=== PATIENT | female | born 1955 | race Caucasian/White ===

== ENCOUNTER 2024-10-14 03:19 | Inpatient (IN) | payer MEDICAID, MEDICARE ==
[~2024-10-14] VITALS: Ht 167.6 cm; Wt 70.3 kg
[2024-10-14] MEDS ORDERED: Z GUARD REMEDY 4 OZ OINT TP PRN (05:00)
[2024-10-14] MEDS ORDERED: ONDANSETRON HCL/PF 4 MG/2 ML VIAL IVP PRN (05:00)
[2024-10-14] MEDS ORDERED: ACETAMINOPHEN 325 MG TABLET PO PRN (05:00)
[2024-10-14] MEDS ORDERED: MAGNESIUM HYDROXIDE 30 ML UDC PO PRN (05:00)
[2024-10-14 05:46] VITALS: BP 145/86; TEMP 98.1; O2SAT 97
[2024-10-14] MEDS: CEFEPIME 2 GM in IV D5W 100 ML IV SCH (06:48)
[2024-10-14] MEDS ORDERED: LOSA25TA27 PO (07:08)
[2024-10-14 07:32] LABS: BASOPHILS % (AUTO) 0.3 % (0.0-2.0); EOSINOPHILS # (AUTO) 0.1 K/uL (0.0-0.7); EOSINOPHILS % (AUTO) 1.3 % (0.0-6.0); HEMATOCRIT 29 % (33-45); HEMOGLOBIN 10.2 g/dL (11.5-14.8); LYMPHOCYTES # (AUTO) 2.1 K/uL (0.8-4.8); MEAN CORPUSCULAR HEMOGLOBIN 33 PG (26.0-33.0); MEAN CORPUSCULAR HGB CONC 35 g/dl (31.0-36.0); MEAN CORPUSCULAR VOLUME 94 fL (82-100); MONOCYTES # (AUTO) 0.3 K/uL (0.1-1.30); MONOCYTES % (AUTO) 4.1 % (2.0-12.0); NEUTROPHILS # (AUTO) 5.2 K/uL (1.8-8.9); NEUTROPHILS % (AUTO) 67.3 % (43.0-81.0); PLATELET COUNT (AUTO) 568 K/uL (150-450); RED BLOOD CELL COUNT(AUTO) 3.09 MIL/uL (4.0-5.2); RED CELL DISTRIBUTION WIDTH 12.9 % (11.5-15.0); WHITE BLOOD COUNT (AUTO) 7.7 K/uL (4.3-11.0)
[2024-10-14 07:43] LABS: ALBUMIN 2.3 g/dL (3.4-5.0); CALCIUM, SERUM 8.6 mg/dL (8.5-10.1); CREATININE 0.7 mg/dL (0.6-1.3); MAGNESIUM 2.2 mg/dL (1.8-2.4); POTASSIUM 4.1 mmol/L (3.5-5.1)
[2024-10-14] MEDS: PANTOPRAZOLE 40 MG TABLET.DR PO SCH (07:52)
[2024-10-14 08:00] VITALS: BP 157/78; TEMP 97.5; O2SAT 97
[2024-10-14 08:31] LABS: BILIRUBIN,TOTAL 0.2 mg/dL (0.2-1.0); TOTAL PROTEIN, SERUM 6.8 g/dL (6.4-8.2)
[2024-10-14] MEDS: DOXYCYCLINE HYCLATE (100 MG) 100 MG TABLET PO SCH (09:57)
[2024-10-14 12:00] VITALS: BP 122/87; TEMP 97.4
[2024-10-14] MEDS: FLUCONAZOLE IN NS 100 MG in PREMIX 1 EA IV SCH (12:47)
[2024-10-14 16:00] VITALS: BP 134/64; TEMP 97.6; O2SAT 97
[2024-10-14 20:00] VITALS: BP 126/60; TEMP 98.4; O2SAT 95
[2024-10-15] VITALS: BP 135/62; TEMP 98; O2SAT 98
[2024-10-15 04:00] VITALS: BP 139/64; TEMP 97.7; O2SAT 98
[2024-10-15 07:39] LABS: BASOPHILS % (AUTO) 0.3 % (0.0-2.0); EOSINOPHILS # (AUTO) 0.1 K/uL (0.0-0.7); EOSINOPHILS % (AUTO) 1.1 % (0.0-6.0); HEMATOCRIT 31 % (33-45); HEMOGLOBIN 10.4 g/dL (11.5-14.8); LYMPHOCYTES # (AUTO) 1.7 K/uL (0.8-4.8); LYMPHOCYTES % (AUTO) 28.9 % (20.0-44.0); MEAN CORPUSCULAR HEMOGLOBIN 32 PG (26.0-33.0); MEAN CORPUSCULAR HGB CONC 34 g/dl (31.0-36.0); MEAN CORPUSCULAR VOLUME 95 fL (82-100); MONOCYTES # (AUTO) 0.3 K/uL (0.1-1.30); MONOCYTES % (AUTO) 5.5 % (2.0-12.0); NEUTROPHILS # (AUTO) 3.8 K/uL (1.8-8.9); NEUTROPHILS % (AUTO) 64.2 % (43.0-81.0); PLATELET COUNT (AUTO) 544 K/uL (150-450); RED BLOOD CELL COUNT(AUTO) 3.23 MIL/uL (4.0-5.2); RED CELL DISTRIBUTION WIDTH 13.2 % (11.5-15.0); WHITE BLOOD COUNT (AUTO) 5.9 K/uL (4.3-11.0)
[2024-10-15 08:00] VITALS: BP 139/69; TEMP 98.2; O2SAT 97
[2024-10-15 08:00] LABS: CALCIUM, SERUM 8.5 mg/dL (8.5-10.1); CREATININE 0.7 mg/dL (0.6-1.3); MAGNESIUM 2.3 mg/dL (1.8-2.4); PHOSPHORUS 3.9 mg/dL (2.5-4.9); POTASSIUM 4.5 mmol/L (3.5-5.1)
[2024-10-15] MEDS: LOSARTAN POTASSIUM 50 MG TABLET PO SCH (09:17)
[2024-10-15 12:00] VITALS: BP 139/69; TEMP 98.2; O2SAT 97
[2024-10-15 16:00] VITALS: BP 121/53; TEMP 98.1; O2SAT 97
[2024-10-15 20:00] VITALS: BP 125/67; TEMP 98.1; O2SAT 97
[2024-10-16] VITALS: BP 130/71; TEMP 98.2; O2SAT 97
[2024-10-16 04:00] VITALS: BP 119/74; TEMP 97.9; O2SAT 97
[2024-10-16 08:00] VITALS: BP 119/71; TEMP 98.1; O2SAT 98
[2024-10-16 16:00] VITALS: BP 110/70; TEMP 97.9; O2SAT 96
[2024-10-16 20:00] VITALS: BP 127/81; TEMP 97.9; O2SAT 98
[2024-10-17 09:00] VITALS: BP 116/72; TEMP 96.2; O2SAT 98
[2024-10-17 20:00] VITALS: BP 126/63; TEMP 98.4; O2SAT 100
[2024-10-18 04:00] VITALS: BP 129/78; TEMP 97.5; O2SAT 96
[2024-10-18 08:00] VITALS: BP 118/70; TEMP 98.1; O2SAT 99
[2024-10-18 12:00] VITALS: BP 120/75; TEMP 98.7; O2SAT 99
[2024-10-18] MEDS ORDERED: NITROGLYCERIN 0.4 MG/TAB BOTTLE SL PRN (15:00)
[2024-10-18 16:00] VITALS: BP 120/54; TEMP 97.6; O2SAT 99
[2024-10-18 20:00] VITALS: BP 111/59; TEMP 98.1; O2SAT 97
[2024-10-19] VITALS: BP 116/70; TEMP 97.6; O2SAT 99
[2024-10-19 04:00] VITALS: BP 116/68; TEMP 97.9; O2SAT 98
[2024-10-19 08:00] VITALS: BP 112/65; TEMP 97.7; O2SAT 97
[2024-10-19 16:00] VITALS: BP 117/64; TEMP 98.2; O2SAT 97
[2024-10-19 20:00] VITALS: BP 110/55; TEMP 97.9; O2SAT 97
[2024-10-20] VITALS: BP 112/57; TEMP 98.1; O2SAT 98
[2024-10-20 04:00] VITALS: BP 121/64; TEMP 98.1; O2SAT 98
[2024-10-20 08:00] VITALS: BP 114/70; TEMP 97.8; O2SAT 97
[2024-10-20 16:00] VITALS: BP 102/64; TEMP 97.8; O2SAT 97
[2024-10-21 05:37] VITALS: BP 108/66; TEMP 97.7; O2SAT 97
[2024-10-21 08:00] VITALS: BP 117/59; TEMP 98.1; O2SAT 95
[2024-10-21 18:18] VITALS: BP 119/60; TEMP 98.5; O2SAT 95
[2024-10-21] MEDS: LEVOFLOXACIN (250MG) 250 MG TABLET PO SCH (20:57)
[2024-10-21] MEDS: AMOX/CLAVULANATE 875 MG TABLET PO SCH (20:57)
[2024-10-21] MEDS: ACIDOPHILUS/BULGARICUS 1 EACH GRAN.PACK PO SCH (20:59)
[2024-10-22] VITALS: BP 113/56; TEMP 98.2; O2SAT 97
[2024-10-22 07:51] LABS: BASOPHILS % (AUTO) 0.5 % (0.0-2.0); EOSINOPHILS # (AUTO) 0.1 K/uL (0.0-0.7); EOSINOPHILS % (AUTO) 1.1 % (0.0-6.0); HEMATOCRIT 32 % (33-45); HEMOGLOBIN 11.1 g/dL (11.5-14.8); LYMPHOCYTES # (AUTO) 1.7 K/uL (0.8-4.8); LYMPHOCYTES % (AUTO) 31.7 % (20.0-44.0); MEAN CORPUSCULAR HEMOGLOBIN 32 PG (26.0-33.0); MEAN CORPUSCULAR HGB CONC 34 g/dl (31.0-36.0); MEAN CORPUSCULAR VOLUME 95 fL (82-100); MONOCYTES # (AUTO) 0.3 K/uL (0.1-1.30); MONOCYTES % (AUTO) 4.9 % (2.0-12.0); NEUTROPHILS # (AUTO) 3.3 K/uL (1.8-8.9); NEUTROPHILS % (AUTO) 61.8 % (43.0-81.0); PLATELET COUNT (AUTO) 467 K/uL (150-450); RED BLOOD CELL COUNT(AUTO) 3.43 MIL/uL (4.0-5.2); RED CELL DISTRIBUTION WIDTH 13.4 % (11.5-15.0); WHITE BLOOD COUNT (AUTO) 5.3 K/uL (4.3-11.0)
[2024-10-22 08:00] VITALS: BP 134/55; TEMP 99; O2SAT 98
[2024-10-22 08:05] LABS: CALCIUM, SERUM 8.7 mg/dL (8.5-10.1); CREATININE 0.8 mg/dL (0.6-1.3); POTASSIUM 4.2 mmol/L (3.5-5.1)
[2024-10-22 16:00] VITALS: BP 106/60; TEMP 97.5; O2SAT 99
[2024-10-22 20:00] VITALS: BP 119/65; TEMP 97.5; O2SAT 99
[2024-10-23 04:00] VITALS: BP 124/69; TEMP 98.1; O2SAT 99
[2024-10-23 12:00] VITALS: BP 102/52; TEMP 97.2; O2SAT 98
[2024-10-23] MEDS: ACIDOPHILUS/BULGARICUS 1 EACH TAB.CHEW PO SCH (16:36)
[2024-10-23 20:00] VITALS: BP 112/63; TEMP 98.6; O2SAT 96
[2024-10-24 04:00] VITALS: BP 133/81; TEMP 98.4; O2SAT 97
[2024-10-24 12:00] VITALS: BP 118/88; TEMP 98.9; O2SAT 97
[2024-10-24 20:00] VITALS: BP 129/69; TEMP 98.2; O2SAT 99
[2024-10-25 04:00] VITALS: BP 124/62; TEMP 97.9; O2SAT 99
[2024-10-25 08:00] VITALS: BP 103/51; TEMP 97.9; O2SAT 99
[2024-10-25 16:00] VITALS: BP 120/50; TEMP 97.8; O2SAT 99
[2024-10-25 20:00] VITALS: BP 121/58; TEMP 98.1; O2SAT 96
[2024-10-26 04:00] VITALS: BP 121/58; TEMP 98.1; O2SAT 96
[2024-10-26 10:09] VITALS: BP 129/69; TEMP 98.2; O2SAT 99
[2024-10-26 16:01] VITALS: BP 120/50; TEMP 97.8; O2SAT 99
[2024-10-26 20:00] VITALS: BP 111/70; TEMP 98.1; O2SAT 96
[2024-10-27 04:21] VITALS: BP 135/80; TEMP 97.9; O2SAT 99
[2024-10-27 08:00] VITALS: BP 118/71; TEMP 98.1; O2SAT 98
[2024-10-27 19:16] VITALS: BP 118/71; TEMP 98.7; O2SAT 98
[2024-10-27 20:00] VITALS: BP 128/77; TEMP 98.4; O2SAT 97
[2024-10-28 04:00] VITALS: BP 130/74; TEMP 98.4; O2SAT 98
[2024-10-28 08:00] VITALS: BP 140/74; TEMP 98.1; O2SAT 96
[2024-10-28 08:49] VITALS: BP 140/74
[2024-10-28] MEDS ORDERED: LEVO250T59 PO (10:48)
[2024-10-28] MEDS ORDERED: AMOX1TAB16 PO (10:48)
== END 2024-10-28 12:46 | disposition home health service (06) | DRG 139 ==
LOC: UNDOADMIN 03:19 → TELE1 03:19 → MEDSG1 03:19
PROVIDERS: ADMIT Internal Medicine; ATTEND Internal Medicine
DX: J18.8 Other pneumonia, unspecified organism (principal); I10 Essential (primary) hypertension; F17.210 Nicotine dependence, cigarettes, uncomplicated; K21.9 Gastro-esophageal reflux disease without esophagitis; E66.9 Obesity, unspecified; Z68.25 Body mass index [BMI] 25.0-25.9, adult; R91.8 Other nonspecific abnormal finding of lung field; D38.1 Neoplasm of uncertain behavior of trachea, bronchus and lung
CPT/HCPCS: 36415; 71045-TC; 80048-TC; 80053-TC; 80061-TC; 82962-TC; 83735-TC; 84100-TC; 85025-TC; 86480; 87040-TC; 87081-TC; 87102-TC; 87206-TC; 88108-TC; 88305-TC; 94640-TC; 97112-TC; 97116-TC; 97530-TC; A4216; A4223; G0378; J0692; J1450; J7050; J7060